=== PATIENT | male | born 1950 | race Caucasian/White ===

== ENCOUNTER 2023-02-05 07:31 | Outpatient (AMB) | payer MEDICARE, SELFPAY ==
--- NOTE | 2023-02-05 07:39 | A.OFFPC_ITS ---
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 [place] Required: No Allergies No Known Allergies Allergy (Verified 02/05/23 07:41) Medication List - Last Reconciled 02/05/23 by Zoe Oden RN aspirin 81 mg PO DAILY cholecalciferol (vitamin D3) 50 mcg PO DAILY coenzyme Q10 (Co Q-10) 300 mg PO DAILY ezetimibe 10 mg PO DAILY ferrous sulfate 325 mg PO Q OTHER DAY flaxseed oil 1,000 mg PO DAILY isosorbide mononitrate ER 30 mg PO DAILY metoprolol succinate ER 150 mg PO DAILY omega 3-vwl-zgj-fish oil 1,200 (144-216) mg (Fish Oil) caps PO pantoprazole 40 mg PO DAILY pediatric multivitamin ([place] Multivitamin chewable tablet) 1 tab PO .QOD ranolazine ER 1,000 mg PO BID rosuvastatin 40 mg PO DAILY vitamin B complex (B Complex-Vitamin B12 tablet) 1 tab PO DAILY Tobacco use date assessed: 02/05/23 Fall risk assessment: No Falls in past year Last assessed Fall Risk: 02/05/23 Dental Screening Dental Screen Date: 02/05/23 Did you have a dental visit in the last 12 months?: No Did you have a dental problem in the last 6 months where you did not have access to dental care?: No Was dental information given to patient?: Patient declined (Pt has full dentures upper and lower since age 20) 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 Past medical history includes CAD status post CABG, hyperlipidemia, chronic GERD and Fung's esophagus. FOR[facility]LY [facility], [facility] Surgical History (Updated 02/05/23 @ 15:11 by Pilar Gomez MD) S/P tooth extraction S/P CABG (coronary artery bypass graft) S/P inguinal hernia repair Status post cardiac surgery Family History Mother Diabetes Father Heart problem Sister Diabetes Heart problem Hx of blood clots Social History Housing: House Patient Tobacco Use Status: Former Tobacco user Tobacco use type: Cigarette Years Smoked: Smoked for 36 years, quit 2006 e-Cigarette/Vaping Use: Never Used Second Hand Smoke Exposure: No service: No Current occupational status: retired Current occupational exposures/hazards: No Hearing needs: Yes (Some hearing loss, hearing test several years ago, hearing aids too costly) Vision needs: Yes Questionnaire PHQ-9 Over the last 2 weeks, how often have you been bothered by any of the following problems? 1. Little interest or pleasure in doing things: not at all 2. Feeling down, depressed, or hopeless: not at all 3. Trouble falling or staying asleep, or sleeping too much: several days 4. Feeling tired or having little energy: several days 5. Poor appetite or overeating: not at all 6. Feeling bad about yourself - or that you are a failure or have let yourself or your family down: not at all 7. Trouble concentrating on things, such as reading the newspaper or watching television: not at all 8. Moving or speaking so slowly that other people could have noticed. Or the opposite - being so fidgety or restless that you have been moving around a lot more than usual: not at all 9. Thoughts that you would be better off or of hurting yourself in some way: not at all Total score: 2 Depression Screening Interpretation: Negative 22901 - PHQ-9 Billing: Yes Source: Developed by Drs. Isiah Calixto, Gillian Díaz, Curtis Roberto and colleagues, with an educational silvio from [employer]. Thrive Questionnaire Date Thrive assessed: 02/05/23 I am a: Patient What is your living situation today?: I have a steady place to live Within the past 12 months, did the food you bought not last and you didn't have the money to get more?: Never true Within the past 12 months, did you worry whether your food would run out before you got money to buy more?: Never true Do you have trouble paying for medicines?: No Do you have trouble getting transportation to medical appointments?: No Do you have trouble paying your heating and electricity bill?: No Do you have trouble taking care of your child, family member or friend?: No Do you have trouble with day-to-day activities such as bathing, preparing meals, shopping, managing finances, etc.?: No Are you currently unemployed and looking for a job?: No Are you interested in more education?: No Please select the resources that you would like help with: None Currently or been in a relationship where the following occur: no concerns reported AUDIT C Alcohol Use Questionnaire (AUDIT-C) 1. How often do you have a drink containing alcohol?: Never 3. How often do you have six or more drinks on one occasion?: Never Total Score: 0 LUCY-7 AMB Questionnaire LUCY-7 Date LUCY - 7 assessed: 02/05/23 Feeling nervous, anxious, or on edge: 0 = Not at all Not being able to stop or control worryin = Not at all Worrying too much about different things: 0 = Not at all Trouble relaxin = Not at all Being so restless that it is hard to sit still: 0 = Not at all Becoming easily annoyed or irritable: 0 = Not at all Feeling afraid as if something awful might happen: 0 = Not at all Total LUCY-7 score (0-4 normal; 5-9 mild; 10-14 moderate; 15-21 severe): 0 Source: Developed by Drs. Isiah Calixto, Gillian Díaz, Curtis Roberto and colleagues, with an educational silvio from [employer]. LUCY-7 Assessment Billing LUCY-7 Assessment Tool: LUCY-7 Assessment 16515 Review of Systems Const All systems reviewed & are unremarkable except as noted in HPI and below Reports no additional complaints Eyes Reports no additional complaints ENT Reports no additional complaints Card Reports no additional complaints Resp Reports no additional complaints GI Reports no additional complaints Reports no additional complaints Physical exam (Primary Care) Vital Signs: Last Vital Signs Pulse 71 02/05/23 07:57 Resp 20 02/05/23 07:57 BP 128/72 02/05/23 07:57 Pulse Ox 98 02/05/23 07:57 Oxygen Delivery Method Room Air 02/05/23 07:57 BMI result Body Mass Index 30.9 Tobacco/Smoking Status: Tobacco use Status Tobacco use date assessed 02/05/23 02/05/23 07:59 Patient Tobacco Use Status Former Tobacco user 02/05/23 07:59 Tobacco use type Cigarette 02/05/23 07:59 e-Cigarette/Vaping Use Never Used 02/05/23 07:59 PHQ-9: PHQ-9 Score PHQ-9: Total score 2 02/05/23 08:10 Depression Screening Interpretation: Negative Thrive Assessment: Date of Thrive Assessment Date Thrive assessed 02/05/23 02/05/23 07:59 Currently or been in a relationship where the following occur: no concerns reported Const General: no acute distress HENMT Head: Yes normal to inspection General nose exam: Normal external nose present Mouth: Normal oral and palatal mucosa present Throat: Yes posterior oropharynx normal Neck Neck: Yes no lymphadenopathy and Yes supple Resp Effort & Inspection: normal respiratory effort Auscultation: clear to auscultation bilaterally Cardio Rhythm: regular rhythm Heart sounds: S1 normal heart sound present and S2 normal heart sound present GI Inspection: Yes normal to inspection Palpation (GI): Soft to palpation Percussion: Yes normal to percussion Auscultation: normal bowel sounds Assessment and Plan Assessment & Plan (1) CAD (coronary artery disease): Comment: f/u with cardiology in [facility], q 6 months Code(s): I25.10 - Atherosclerotic heart disease of [place] coronary artery without angina pectoris Plan: Continue current medication (2) S/P cardiac pacemaker procedure: Comment: f/u Q 3 MONTHS 2019 Code(s): Z95.0 - Presence of cardiac pacemaker (3) Fung esophagus: Comment: EGD Q 5 yrs, f/u [facility] GI Code(s): K22.70 - Fung's esophagus without dysplasia Plan: CONTINUE PPI (4) Hyperlipidemia: Code(s): E78.5 - Hyperlipidemia, unspecified Plan: CONTINUE STATIN AND ZETIA (5) Hyperglycemia: Code(s): R73.9 - Hyperglycemia, unspecified Plan: ADA diet regular physical activity discussed with the patient return for fasting blood work and will follow-up in 6 months with a fasting labs before (6) Hx of colonoscopy: Comment: 2021 ? ,Q 10 yrs, [facility] Code(s): Z98.890 - Other specified postprocedural states (7) Anemia: Comment: On iron supplement twice a week, negative GI workup Code(s): D64.9 - Anemia, unspecified Orders: Orders Comprehensive [place]. Panel Fast Today I25.10 - Atherosclerotic heart disease of [place] coronary artery without angina pectoris, Z00.00 - Encounter for general adult medical examination without abnormal findings UA w Microscopic Today I25.10 - Atherosclerotic heart disease of [place] coronary artery without angina pectoris, Z00.00 - Encounter for general adult medical examination without abnormal findings Hemoglobin A1c Today I25.10 - Atherosclerotic heart disease of [place] coronary artery without angina pectoris, Z00.00 - Encounter for general adult medical examination without abnormal findings Complete Blood Count Auto Diff Today I25.10 - Atherosclerotic heart disease of [place] coronary artery without angina pectoris, Z00.00 - Encounter for general adult medical examination without abnormal findings IRON PROFILE Today I25.10 - Atherosclerotic heart disease of [place] coronary artery without angina pectoris, Z00.00 - Encounter for general adult medical examination without abnormal findings Lipid Panel Today I25.10 - Atherosclerotic heart disease of [place] coronary artery without angina pectoris, Z00.00 - Encounter for general adult medical examination without abnormal findings Microalbumin, Random (w Creat) Today R73.9 - Hyperglycemia, unspecified Comprehensive [place]. Panel Fast 6 Months E78.5 - Hyperlipidemia, unspecified, I25.10 - Atherosclerotic heart disease of [place] coronary artery without angina pectoris, R73.9 - Hyperglycemia, unspecified Hemoglobin A1c 6 Months E78.5 - Hyperlipidemia, unspecified, I25.10 - Atherosclerotic heart disease of [place] coronary artery without angina pectoris, R73.9 - Hyperglycemia, unspecified Lipid Panel 6 Months E78.5 - Hyperlipidemia, unspecified, I25.10 - Atherosclerotic heart disease of [place] coronary artery without angina pectoris, R73.9 - Hyperglycemia, unspecified Coding Level of Care Code New Pt Level 4 (84949) Diagnoses CAD (coronary artery disease) I25.10 S/P cardiac pacemaker procedure Z95.0 Fung esophagus K22.70 Hyperlipidemia E78.5 Hyperglycemia R73.9 Hx of colonoscopy Z98.890 Anemia D64.9 Additional Codes LUCY-7 Assessment Billing - LUCY-7 Assessment Tool: LUCY-7 Assessment [id number] ([id number])
[2023-02-05 07:57] VITALS: BP 128/72; PULSE 71; RESP 20; O2SAT 98; BMI 30.9
== END 2023-02-05 09:21 | disposition home or self-care (01) ==
PROVIDERS: Visit Provider Internal Medicine
DX: I25.10 Atherosclerotic heart disease of native coronary artery without angina pectoris (principal); K22.70 Barrett's esophagus without dysplasia; Z95.0 Presence of cardiac pacemaker; Z98.890 Other specified postprocedural states; E78.5 Hyperlipidemia, unspecified; R73.9 Hyperglycemia, unspecified; D64.9 Anemia, unspecified
CPT/HCPCS: 99204

== ENCOUNTER 2023-02-06 06:59 | Outpatient (REF) | payer MEDICARE, SELFPAY ==
[2023-02-06 11:29] LABS: MANUAL DIFF FLAG NO
[2023-02-06 11:29] LABS: Appearance Urine Clear; Color Urine Dark Yellow; Glucose Urine UA Negative (Negative); Leukocyte Esterase Urine Trace (Negative); Nitrite Urine Negative (Negative); PH 5.5 (5.0-9.0); UMIC TRIGGER UA YES; Urine Blood Negative (Negative); Urine Ketones Negative (Negative); Urine Protein Negative (Neg-Trace)
[2023-02-06 11:32] LABS: Bacteria Urine None Seen (None Seen); Hyaline Casts Urine 0-2 /LPF (0-2); RBC Urine 0-2 /HPF (0-2); Squamous Epithelial Cell Urine 0-2 /HPF (0-2)
[2023-02-06 11:40] LABS: Basophils Percent Auto 0.4 % (0-2); Eosinophils Absolute Auto 0.3 X10*3/uL (0.0-0.4); Eosinophils Percent Auto 3.3 % (0-4); Hematocrit 41.8 % (42.0-52.0); Hemoglobin 13.8 g/dl (14.0-18.0); Imm Gran Abs Auto 0.04 X10*3/uL (0.00-0.03); Imm Gran Pct Auto 0.5 % (0.0-0.4); Lymphocytes Absolute Auto 2.1 X10*3/uL (1.2-4.9); Lymphocytes Percent Auto 26.1 % (20-40); Mean Corpuscular Hemoglobin 31.6 pg (27.0-33.0); Mean Corpuscular Volume 95.7 fL (80.0-98.0); Mean Platelet Volume 11.3 fL (9.4-12.4); Monocytes Absolute Auto 0.7 X10*3/uL (0.1-1.2); Monocytes Percent Auto 9.3 % (2-11); Neutrophils Absolute Auto 4.8 x10*3/uL (2.0-8.3); Neutrophils Percent Auto 60.4 % (45-73); Platelet Count 162 X10*3/uL (160-400); Red Blood Count 4.37 X10*6/uL (4.60-5.80)
[2023-02-06 11:56] LABS: Alanine Aminotransferase 29 U/L (0-40); Alkaline Phosphatase 49 U/L (39-117); Anion Gap 10 (12-20); Aspartate Amino Transferase 25 U/L (5-37); Bilirubin Total 0.7 mg/dL (0.0-1.0); Blood Urea Nitrogen 12 mg/dL (9-16); Calcium 9.4 mg/dL (8.4-10.2); Carbon Dioxide 29 mmol/L (22-29); Chloride 108 mmol/L (96-108); Cholesterol 124 mg/dL (<200); Estimated Glomerular Filt Rate > 60; Glucose Fasting 125 mg/dL (60-99); HDL Cholesterol 51 mg/dL (>40); Iron 135 mcg/dL (45-160); LDL Cholesterol Calculated 59 mg/dL (<100); Percent Iron Saturation 48 % (15-50); Potassium 4.3 mmol/L (3.3-5.1); Sodium 143 mmol/L (135-145); Total Iron Binding Capacity 283 mcg/dL (228-428); Total Protein 6.7 g/dL (6.5-8.0); Triglycerides 72 mg/dL (<150); Unsaturated Iron Binding 148 ug/dL
[2023-02-06 12:11] LABS: Estimated Average Glucose 128 mg/dL; Hemoglobin A1c % 6.1 % (<6.0)
[2023-02-06 12:17] LABS: Microalbum/Creatinine Ratio Ur 25.9 ug/mg cr (<30)
== END 2023-02-06 07:00 | disposition home or self-care (01) ==
LOC: HO.HMGCLDS 06:59
PROVIDERS: PCP Internal Medicine; Visit Provider Internal Medicine
DX: Z00.00 Encounter for general adult medical examination without abnormal findings (principal); I25.10 Atherosclerotic heart disease of native coronary artery without angina pectoris; R73.9 Hyperglycemia, unspecified
CPT/HCPCS: 36415; 80053; 80061; 81001; 82043; 82570; 83036; 83540; 85025